=== PATIENT | male | born 1945 | race Caucasian/White ===

== ENCOUNTER 2017-01-07 21:03 | Emergency (ER) | payer MEDICARE, BC ==
[2017-01-07 21:51] VITALS: BP 159/55
--- NOTE | 2017-01-07 22:11 | ED ---
Upper Extremity Pain - HPI Summary HPI Summary: Patient arrives to the ED after falling directly onto R wrist after falling on the stairs in his home approx 1 hour ago. Denies hitting head, LOC or other injuries. States there was massive swelling over the ulnar side of the wrist, which has now gone down. swelling is obstructing any bone prominence from viewing. Patient is able to flex and extend right wrist. Denies pain. Swelling is discrete at lateral right wrist and is severe. Medications include atorvastatin, lisinopril and hydrochlorothiazide. - History of Current Complaint Chief Complaint: EDExtremityUpper Stated Complaint: FALL,WRIST INJURY Time Seen by Provider: 01/07/17 21:53 Hx Obtained From: Patient Mechanism Of Injury: Blunt Trauma Onset/Duration: Started Hours Ago Timing: Constant Severity Initially: Mild Severity Currently: Mild Pain Location: Wrist, Other: - no pain noted Aggravating Factor(s): Nothing Alleviating Factor(s): Nothing Associated Signs & Symptoms: Positive: Negative Related History: Dominant Hand Right - Risk Factors Non-Orthopedic Risk Factor: Negative DVT Risk Factors: Negative Septic Arthritis Risk Factor: Extremes of Age - Allergies/Home Medications Allergies/Adverse Reactions: Allergies Allergy/AdvReac Type Severity Reaction Status Date / Time No Known Allergies Allergy Verified 01/07/17 21:51 PMH/Surg Hx/FS Hx/Imm Hx Previously Healthy: Yes Cardiovascular History: Reports: Hx Hypertension Respiratory History: Reports: Other Respiratory Problems/Disorders - pe 12/2012 fu per pt History: Reports: Hx Renal Disease - abnormal gfr Infectious Disease History: No Infectious Disease History: Denies: Traveled Outside the [place] in Last 30 Days - Social History Occupation: Retired Lives: With Family Alcohol Use: Rare Hx Substance Use: No Substance Use Type: Reports: None Smoking Status (MU): Never Smoked Tobacco Review of Systems Constitutional: Negative Eyes: Negative Cardiovascular: Negative Respiratory: Negative Musculoskeletal: Other - no pain Positive: Edema - over ulnar side of right wrist Skin: Negative Neurological: Negative Psychological: Normal All Other Systems Reviewed And Are Negative: Yes Physical Exam Triage Information Reviewed: Yes Vital Signs On Initial Exam: Initial Vitals Temp Pulse Resp BP Pulse Ox 98.2 F 69 16 159/55 98 01/07/17 21:45 01/07/17 21:45 01/07/17 21:45 01/07/17 21:45 01/07/17 21:45 Appearance: Positive: Well-Appearing, No Pain Distress, Well-Nourished Skin: Positive: Warm, Soft Eyes: Positive: EOMI, Conjunctiva Clear ENT: Positive: Hearing grossly normal Neck: Positive: Supple, Nontender Respiratory/Lung Sounds: Positive: Clear to Auscultation, Breath Sounds Present Cardiovascular: Positive: Normal Musculoskeletal: Positive: Edema Right - ulnar side of wrist Neurological: Positive: Sensory/Motor Intact, Disoriented, Speech Normal Psychiatric: Positive: Affect/Mood Appropriate AVPU Assessment: Alert Diagnostics - Vital Signs Vital Signs Temp Pulse Resp BP Pulse Ox 01/07/17 21:45 98.2 F 69 16 159/55 98 - Laboratory Lab Statement: Any lab studies that have been ordered have been reviewed, and results considered in the medical decision making process. - Radiology No standard instances Xray Interpretation: No Acute Changes Radiology Interpretation Completed By: Radiologist - soft tissue swelling noted Course/Dx - Course Course Of Treatment: Physical exam performed. Able to flex, extend and rotate right wrist without pain or obstruction. Hematoma on ulnar side of right wrist. Xrays obtained. WNL with no acute findings. Acute soft tissue swelling. Encouraged ice, kristine wrap, elevation and ibuprofen for discomfort. Patient agrees with plan. - Diagnoses Differential Diagnosis/HQI/PQRI: Positive: Contusion, Hematoma, Strain, Sprain Provider Diagnoses: Contusion of right wrist Discharge - Discharge Plan Condition: Stable Disposition: HOME Referrals: Cade Avila MD [Primary Care Provider] - Additional Instructions: Soft tissue injury. No fracture noted. Ice 20 minutes at a time, 3-4 times daily. Ibuprofen or tylenol as needed for pain.
--- NOTE | 2017-01-07 22:40 | RAD ---
HISTORY: Contusion, swelling, blunt trauma to the right wrist COMPARISONS: None VIEWS: 3, Frontal, lateral, and oblique views of the right wrist FINDINGS: BONE DENSITY: Normal. BONES: There is no displaced fracture. JOINTS: There is no arthropathy. ALIGNMENT: There is no dislocation. SOFT TISSUES: There is soft tissue swelling along the distal forearm OTHER FINDINGS: None. IMPRESSION: SOFT TISSUE SWELLING. NO ACUTE OSSEOUS INJURY. IF SYMPTOMS PERSIST, RECOMMEND REPEAT IMAGING.
== END 2017-01-07 22:50 | disposition home or self-care (01) ==
LOC: ED 21:03
DX: S60.211A Contusion of right wrist, initial encounter (principal); W10.9XXA Fall (on) (from) unspecified stairs and steps, initial encounter; Y93.9 Activity, unspecified; Y92.9 Unspecified place or not applicable
CPT/HCPCS: 99282